=== PATIENT | female | born 1950 | race Caucasian/White ===

== ENCOUNTER → 2019-05-17 | Outpatient (CLI) | payer OTHER, MEDICARE | LOC: RAD 11:38 | DX: M16.0 Bilateral primary osteoarthritis of hip (principal); M25.751 Osteophyte, right hip; M76.9 Unspecified enthesopathy, lower limb, excluding foot; Z88.0 Allergy status to penicillin ==

== ENCOUNTER → 2019-08-18 | Outpatient (CLI) | payer OTHER, MEDICARE | LOC: SJCVC 11:16 | DX: I10 Essential (primary) hypertension (principal); R00.0 Tachycardia, unspecified; E78.2 Mixed hyperlipidemia; G20 Parkinson's disease; Z79.899 Other long term (current) drug therapy; Z87.891 Personal history of nicotine dependence; Z88.0 Allergy status to penicillin ==

== ENCOUNTER → 2020-01-20 | Outpatient (CLI) | payer OTHER, MEDICARE | LOC: SJCVCIMAG 09:02 | PROVIDERS: ATTEND Internal Medicine | DX: I08.3 Combined rheumatic disorders of mitral, aortic and tricuspid valves (principal); I10 Essential (primary) hypertension; E78.2 Mixed hyperlipidemia; G20 Parkinson's disease ==